=== PATIENT | male | born 1965 | race Caucasian/White ===

== ENCOUNTER 2020-03-16 09:03 | Emergency (ER) | payer OTHER ==
[~2020-03-16] VITALS: Ht 177.8 cm; Wt 95.3 kg
[2020-03-16 09:35] VITALS: BP 144/86
== END 2020-03-16 10:20 | disposition home or self-care (01) ==
LOC: ER 09:03
DX: K02.9 Dental caries, unspecified (principal); J01.00 Acute maxillary sinusitis, unspecified; H60.91 Unspecified otitis externa, right ear; I10 Essential (primary) hypertension
CPT/HCPCS: 70450; 82962; 93005